=== PATIENT | female | born 1950 | race Caucasian/White ===

== ENCOUNTER 2016-12-22 19:51 | Emergency (ER) | payer MEDICARE, BC ==
--- NOTE | 2016-12-22 20:12 | EDM.PDOC ---
ED HPI GENERAL MEDICAL PROBLEM - General Chief Complaint: Lower Extremity Injury/Pain Stated Complaint: LLE swelling, pain Time Seen by Provider: 12/22/16 19:55 Source of Information: Reports: Patient History Limitations: Reports: No Limitations - History of Present Illness INITIAL COMMENTS - FREE TEXT/NARRATIVE: Patient is a 66-year-old female who lives in [place] was in [facility] for the festivities admits to being walking around all day noticed increased edema on her left leg not associated with pain patient recently had surgery on her left knee she had a total knee replacement by Dr. Gutierres is concerned with DVT and edema Onset: Today Onset Date: 12/22/16 Duration: Hour(s):, Getting Worse Location: Reports: Lower Extremity, Left Quality: Reports: Pressure Severity: Moderate - Related Data Allergies Allergy/AdvReac Type Severity Reaction Status Date / Time No Known Allergies Allergy Verified 12/22/16 20:43 Home Meds: Home Meds Aspirin [Halfprin] 81 mg PO BRK 12/22/16 [History] Levothyroxine Sodium [Synthroid] 75 mcg PO ACBREAKFAST 12/22/16 [History] Naproxen Sodium [Aleve] 220 mg PO DAILY PRN 12/22/16 [History] Thyroid,Pork [Nature-Throid] 16.25 mg PO DAILY 12/22/16 [History] Review of Systems - Review of Systems Review Of Systems: See Below Constitutional: Reports: No Symptoms Eyes: Reports: No Symptoms Ears: Reports: No Symptoms Nose: Reports: No Symptoms Mouth/Throat: Reports: No Symptoms Respiratory: Reports: No Symptoms Cardiovascular: Reports: No Symptoms GI/Abdominal: Reports: No Symptoms Genitourinary: Reports: No Symptoms Musculoskeletal: Reports: Other (Left leg swelling) Skin: Reports: Erythema, Wound (Left leg) Neurological: Reports: No Symptoms Psychiatric: Reports: No Symptoms ED EXAM, GENERAL - Physical Exam Exam: See Below Exam Limited By: No Limitations General Appearance: Alert, WD/WN, No Apparent Distress, Obese Ears: Normal External Exam, Normal Canal, Hearing Grossly Normal, Normal TMs Ear Exam: Bilateral Ear: Auricle Normal, Canal Normal, TM normal Nose: Normal Inspection, Normal Mucosa, No Blood Throat/Mouth: Normal Inspection, Normal Lips, Normal Teeth, Normal Gums, Normal Oropharynx, Normal Voice, No Airway Compromise Head: Atraumatic, Normocephalic Neck: Normal Inspection, Supple, Non-Tender, Full Range of Motion Respiratory/Chest: No Respiratory Distress, Lungs Clear, Normal Breath Sounds, No Accessory Muscle Use, Chest Non-Tender Cardiovascular: Normal Peripheral Pulses, Regular Rate, Rhythm, No Edema, No Gallop, No JVD, No Murmur, No Rub GI/Abdominal: Normal Bowel Sounds, Soft, Non-Tender, No Organomegaly, No Distention, No Abnormal Bruit, No Mass (Female) Exam: Deferred Rectal (Female) Exam: Deferred Back Exam: Normal Inspection, Full Range of Motion Extremities: Pedal Edema, Redness (Incision area of the left knee), Other ( Negative Homans sign palpable vein on posterior calf mild tenderness). No: John's Sign Neurological: Alert, Oriented, CN II-XII Intact, Normal Cognition, Normal Gait, Normal Reflexes, No Motor/Sensory Deficits Psychiatric: Normal Affect, Normal Mood Skin Exam: Warm, Dry, Erythema (Left knee), Increased Warmth (Left knee) Lymphatic: No Adenopathy Course - Vital Signs Last Recorded V/S: Last Vital Signs Temp 97.6 F 12/22/16 20:00 Pulse 111 H 12/22/16 20:00 Resp 24 H 12/22/16 20:00 BP 137/74 12/22/16 20:00 Pulse Ox 93 L 12/22/16 20:00 - Orders/Labs/Meds Orders: Active Orders 24 hr Category Date Time Status Sodium Chloride 0.9% @ 100 MLS/HR(1,000ml) Med 12/22/16 21:15 Ordered Sodium Chloride 0.9% [Normal Saline] 1,000 ml IV ASDIRECTED Medication Orders Sodium Chloride (Normal Saline) 1,000 mls @ 100 mls/hr IV ASDIRECTED ASHLEY Labs: Laboratory Tests 12/22/16 12/22/16 12/22/16 Range/Units 20:15 20:15 20:15 WBC 12.1 H (4.0-10.2) K/uL RBC 3.93 (3.77-5.09) M/uL Hgb 12.5 (11.7-15.5) g/dL Hct 37.3 (34.0-46.0) % MCV 94.9 (84.0-98.0) fL MCH 31.8 (28.2-33.3) pg MCHC 33.5 (31.7-36.0) g/dL RDW 14.2 H (11.2-14.1) % Plt Count 232 (150-350) K/uL Neut % (Auto) 53.7 (45.0-80.0) % Lymph % (Auto) 37.1 (10.0-50.0) % [place] % (Auto) 7.6 (2.0-14.0) % Eos % (Auto) 1.4 (0.0-5.0) % Baso % (Auto) 0.2 (0.0-2.0) % Neut # (Auto) 6.48 (1.40-7.00) K/uL Lymph # (Auto) 4.48 H (0.50-3.50) K/uL [place] # (Auto) 0.92 (0.00-1.00) K/uL Eos # (Auto) 0.17 (0.00-0.50) K/uL Baso # (Auto) 0.03 (0.00-0.20) K/uL D-Dimer, Quantitative 2170 H (0-400) ng/mL Sodium 140 (136-145) mmol/L Potassium 3.9 (3.5-5.1) mmol/L Chloride 104 (98-107) mmol/L Carbon Dioxide 27.4 (21.0-32.0) mmol/L BUN 14 (7-18) mg/dL Creatinine 0.74 (0.51-1.17) mg/dL Est Cr Clr Drug Dosing TNP Estimated GFR (MDRD) > 60 mL/min Glucose 111 H (74-106) mg/dL Calcium 8.9 (8.5-10.1) mg/dL Meds: Medications Generic Name Dose Route Start Last Admin Trade Name Freq PRN Reason Stop Dose Admin Sodium Chloride 1,000 mls @ 100 mls/hr 12/22/16 21:15 Normal Saline IV ASDIRECTED ASHLEY Departure - Departure Time of Disposition: 21:10 Disposition: DC/Tfer to Acute Hospital 02 Condition: Good Clinical Impression: Deep venous thrombosis of distal vein of left lower extremity Qualifiers: Chronicity: acute Qualified Code(s): I82.4Z2 - Acute embolism and thrombosis of unspecified deep veins of left distal lower extremity - Discharge Information Forms: ED Department Discharge - My Orders Last 24 Hours: My Active Orders 12/22/16 21:15 Sodium Chloride 0.9% @ 100 MLS/HR(1,000ml) Sodium Chloride 0.9% [Normal Saline] 1,000 ml IV ASDIRECTED - Assessment/Plan Last 24 Hours: My Active Orders 12/22/16 21:15 Sodium Chloride 0.9% @ 100 MLS/HR(1,000ml) Sodium Chloride 0.9% [Normal Saline] 1,000 ml IV ASDIRECTED Plan: At this time we'll do a d-dimer CBC BMP D-dimer elevated at 2170 white count elevated 12,700 At this time patient will be transferred to [facility] Dr. Brooks at [facility] patient will be sent by ambulance
[2016-12-22 20:31] LABS: CHLORIDE,CL 104 mmol/L (98-107); SODIUM,NA 140 mmol/L (136-145)
[2016-12-22 21:10] VITALS: BP 149/92
[2016-12-22] MEDS ORDERED: Sodium Chloride 0.9% 1,000 ML IV SCH (21:15)
[2016-12-23] MEDS ORDERED: Sodium Chloride 0.9% 10 ML Syringe FLUSH PRN (00:25)
== END 2016-12-22 22:18 ==
LOC: LL.ED 19:51
DX: I82.4Z2 Acute embolism and thrombosis of unspecified deep veins of left distal lower extremity (principal); Z79.899 Other long term (current) drug therapy
CPT/HCPCS: 36415; 80048; 85025; 85379; 99284; J7030; 99285